=== PATIENT | male | born 1980 | race Caucasian/White ===

== ENCOUNTER → 2018-03-06 14:43 | Outpatient (CLI) | payer MEDICAID, SELFPAY ==
--- NOTE | 2018-03-06 15:06 | CT_ITS ---
CT abdomen pelvis w con CLINICAL INDICATION: Bloody stools with diarrhea and constipation., Rectal bleeding ITS.REASON: RECAL BLEED, BOWEL CHANGE, DIARRHEA ORDERING PHYSICIAN: Lilia Berry PATIENT AGE: 38 years COMPARISON: 05/12/2016 TECHNIQUE: Axial images obtained with sagittal and coronal reformats. All CT scans at the facility use one or more dose reduction, viz: automated exposure control, ma/kV adjustment per patient size (including targeted exams where dose is matched to indication, i.e. head), or iterative reconstruction technique. PROCEDURE: Oral Contrast: Redicat IV Contrast: 75 mL's of Isovue 370. FINDINGS: There is a 6 mm noncalcified nodule in the right middle lobe not significantly changed. The liver, gallbladder, spleen, adrenal glands, pancreas, and kidneys have an unremarkable appearance. No intestinal obstruction or free air. There are few scattered small lymph nodes in the mesentery is which is nonspecific. The appendix has an unremarkable appearance. There is diverticulosis of the descending and sigmoid colon. No evidence of diverticulitis. No pelvic mass or abnormal fluid collection or focal inflammatory change within the pelvis. No acute bony anomalies. There are degenerative changes of the lumbar spine. A sclerotic lesion is present in the left supra-acetabular region consistent with a bone island unchanged. IMPRESSION: 1. No acute findings. 2. Diverticulosis coli. No evidence of diverticulitis
== END ==
PROVIDERS: PCP Nurse Practitioner Acute Care; Visit Provider Nurse Practitioner Acute Care
DX: K62.5 Hemorrhage of anus and rectum (principal); R19.4 Change in bowel habit; R19.7 Diarrhea, unspecified
CPT/HCPCS: 74177; Q9967

== ENCOUNTER → 2018-03-07 11:54 | Outpatient (CLI) | payer MEDICAID, SELFPAY ==
[2018-03-07 11:57] LABS: Adenovirus F 40/41, stool Not Detected (NotDetected); Astrovirus Not Detected (NotDetected); Campylobacter Not Detected (NotDetected); Clostridium Difficile A/B, PCR Not Detected (NotDetected); Cryptosporidium Not Detected (NotDetected); Cyclospora Cayetanesis Not Detected (NotDetected); Entamoeba histolytica Not Detected (NotDetected); Enteroaggregative E coli Not Detected (NotDetected); Enteropathogenic E coli Not Detected (NotDetected); Enterotoxigenic E coli Not Detected (NotDetected); Giardia lamblia Not Detected (NotDetected); Norovirus Not Detected (NotDetected); Plesimonas Shigalloides, PCR Not Detected (NotDetected); Rotavirus A Not Detected (NotDetected); Salmonella, PCR Not Detected (NotDetected); Sapovirus Not Detected (NotDetected); Shiga-like toxin E coli Not Detected (NotDetected); Shigella Enterovasive E coli Not Detected (NotDetected); Vibrio Cholerae Not Detected (NotDetected); Vibrio, PCR Not Detected (NotDetected); Yersinia Entercolitica, PCR Not Detected (NotDetected)
== END ==
LOC: LAB 11:55 → LAB.DROPOF 11:56
PROVIDERS: Visit Provider Nurse Practitioner Acute Care
DX: K62.5 Hemorrhage of anus and rectum (principal)
CPT/HCPCS: 87507

== ENCOUNTER → 2018-07-27 15:57 | Outpatient (CLI) | payer MEDICAID, SELFPAY ==
--- NOTE | 2018-07-27 16:03 | XR_ITS ---
XR ankle LT min 3V HISTORY: Posttraumatic pain ITS.REASON: LT ANKLE INJURY ORDERING PHYSICIAN: Leonie Etienne PATIENT AGE: 38 years Comparison: None FINDINGS: There is a faint density at the tip of the medial malleolus which could represent a small avulsion injury. There is soft tissue swelling medially and laterally. No other significant anomalies are evident. IMPRESSION: Faint calcification at the tip of the medial malleolus which may be due to a nondisplaced avulsion fracture
== END ==
PROVIDERS: PCP Family Medicine; Visit Provider Family Medicine
DX: S99.912A Unspecified injury of left ankle, initial encounter (principal)
CPT/HCPCS: 73610

== ENCOUNTER → 2021-09-07 13:40 | Outpatient (CLI) | payer MEDICAID, SELFPAY ==
--- NOTE | 2021-09-07 13:49 | CA_ITS ---
APPROVED REPORT EXAM: Comprehensive 2D, Doppler, and color-flow Echocardiogram Radiation Oncology Manager: Em Gibbons CRT Ht: 5 ft 7 in Wt: 212lbs BSA: 2.07 BP: 131/75 mmHg Indications: Chest Pain, CAD, Hyperlipidemia, Hypertension/HDD 2D Dimensions LVOT 2.16 cm (M/F) 1.5-2.5 LA Volume 27.90 mL LA Volume Index 13.50 mL/m2 (M/F) 16-34 M-Mode Dimensions RVDd 2.18 cm (0.9-2.6) LA Diam 2.44 cm (1.9-4.0) LVDd 5.17 cm (3.5-5.7) Ao Diam 4.25 cm (2.0-3.7) LVDs 3.21 cm (3.5-5.7) IVSd 1.43 cm (0.6-1.1) PWd 0.86 cm (0.6-1.1) EF (Teich) 67.70% FS 37.90% EDV (Teich) 127.80 mL TAPSE 2.20 (<1.7) ESV (Teich) 41.30 mL LV Diastology E Decel Time 150.00 (160-240 msec) E/A Ratio 0.92 MED E' 8.90 (< 7 cm/sec) MED A' 10.30 cm/s E'/MED E' Ratio 5.67 (>14) LAT E' 9.20 (<10 cm/sec) LAT A' 11.10 cm/s E/LAT E' Ratio 5.49 (>14) Aortic Valve AI PHT 463.00 ms AO Peak GR. 5.10 mmHg Mitral Valve MV E Max Tk. 50.00 (40-130 cm/s) MV A Velocity 55.00 (40-130 cm/s) E/A Ratio 0.92 MV Decel. Time 150.00 (160-240 ms) MV PHT 44.00 ms Tricuspid Valve TR P. Velocity 202.00 cm/s RAP Estimate 10.00 mmHg RVSP 26.40 mmHg Left Ventricle Technically difficult study because of the patient factors and poor acoustic windows. Left atrium is normal size left ventricle is normal size estimated ejection fraction 55% with no regional wall motion abnormality, diastolic parameters are within normal range. Right Ventricle Right atrium and right ventricle are normal size and contractility. Aortic Valve Aortic valve is minimally thickened and fibrosed there is no aortic stenosis, there is trace aortic insufficiency. Mitral Valve Mitral valve is grossly normal, there is trace mitral regurgitation. Tricuspid Valve Tricuspid valve is grossly normal, there is trace tricuspid regurgitation, tricuspid regurgitation jet velocity is inadequate for calculation of the right ventricular systolic pressure. Pulmonic Valve Mitral valve is poorly visualized. Great Vessels Aortic root is normal size. Inferior vena cava is normal size with normal inspiratory collapse. Pericardium No significant pericardial effusion noted. Conclusion 1. Technically difficult study because of the patient factors and poor acoustic windows. 2. Normal left ventricular size preserved left ventricular systolic function, estimated ejection fraction of 55% with no regional wall motion abnormality, diastolic parameters are within normal range. 3. Trace aortic mitral and tricuspid regurgitation. 4. No significant pericardial effusion. 5. Inferior vena cava is normal size with normal inspiratory collapse. Electronically signed by : Javad Ames MD 09/07/2021 15:03:25
== END ==
PROVIDERS: PCP Family Medicine; Visit Provider Nurse Practitioner
DX: I10 Essential (primary) hypertension (principal); E78.5 Hyperlipidemia, unspecified; Z82.49 Family history of ischemic heart disease and other diseases of the circulatory system
CPT/HCPCS: 93306

== ENCOUNTER → 2021-09-14 06:27 | Outpatient (CLI) | payer MEDICAID, SELFPAY ==
--- NOTE | 2021-09-14 | CA_ITS ---
APPROVED REPORT Exam: Pharmacologic Technologist: Gladis Arellano, Ht: 5 ft 7 in Wt: 212 lbs BSA: 2.07 m2 HR: 86 bpm BP: 143/93 mmHg Medical History Medical History: HTN, Hyperlipidemia Medications: Metoprolol,,,,, AtorvaASTATIN,,,,, RIspendone,,,,, CetIRIizine,,,,, Atomoxetine,,,,, SeNnosides docusate,,,,, Cardiac Risk Factors: HTN, Hyperlipidemia, FHX of CAD Stress Test Details Test: LEXISCAN HR Resting HR: 89 bpm Max Heart Rate (APMHR): 180.652196 bpm Max HR Achieved: 133 bpm Target HR (85% APMHR): 153.260729 bpm % of APMHR: 73.89 Recovery HR: 124 bpm BP Resting BP: 143/93 mmHg Max BP: 158/93 mmHg Recovery BP: 149.0/92.0 mmHg ECG Clinical Exercise duration: 04:00 min Highest Stage Achieved: Exercise capacity: 1.0 METs Stress ECG Conclusion During lexiscan pt experinced SOA, no CP noted, no arrthythmias noted, <1.5mm ST changes. Test Summary REST . . . . . . . Sitting REST 03:39 . . 89 . 143/ 93 . . Stage 1 01:00 . . 128 . . . . Stage 2 01:00 . . 132 . . . . Stage 3 01:00 . . 128 . 158/ 93 . . Stage 4 01:00 . . 123 . 152/ 92 . Stop exercise at 04:00 RECOVERY 01:00 . . 119 . 149/ 92 . . RECOVERY 02:00 . . 118 . 150/ 89 . . RECOVERY 02:48 . . 110 . 147/ 94 . . Electronically signed by : Javad Ames MD 09/14/2021 14:00:51
--- NOTE | 2021-09-14 06:32 | NM_ITS ---
APPROVED REPORT Exam: Nuclear Stress Test Indication: CAD Patient Location: Outpatient Stress Tech: Gladis Arellano [place] Tech:Steph Mckeon JERSON RT(R)(N) Ht: 5 ft 7 in Wt: 209 lbs HR: 89 bpm BP: 143/93 mmHg BSA: 2.06 m2 TID: 0.92 BMI: 32.7 History: CAD Procedure: Patient received a 0.4 mg of intravenous Lexiscan, resting heart rate 89 bpm, resting blood pressure 143/93 mmHg, with Lexiscan maximum heart rate achived was 133 bpm which is Less than 85 % of the maximum predicted heart rate and blood pressure was 158/93 mmHg. With Lexiscan, patient denied any complaint of chest pain. Patient was unable to lay on his belly for prone images. Electrocardiogram Resting electrocardiogram showed sinus rhythm, with Lexiscan less than 1.[address] segment depression noted from the baseline EKG. The EKG portion of the Lexiscan is nondiagnostic. Cardiac Stress and Resting SPECT Images: Cardiac Stress and Resting SPECT images were obtained using technetium 99m Myoview 29.7 mCi stress and 10.27 mCi at rest. Gated SPECT analysis of segmental wall motion and calculation of the ejection fraction also done. Cardiac stress and rest SPECT images show uniform myocardial activity without segmental perfusion abnormality, computer derived ejection fraction is 54 % with no regional wall motion abnormality, right ventricle is normal size and contractility. Conclusion: 1. The EKG portion of the Lexiscan is nondiagnostic. 2. No scintigraphic evidence of reversible ischemia seen, computer derived ejection fraction is 54% with no regional wall motion abnormality, right ventricle is normal size and contractility. 3. Normal Lexiscan Myoview study. Electronically signed by : Javad Ames MD 09/14/2021 14:03:10
== END ==
PROVIDERS: PCP Family Medicine; Visit Provider Physician Assistant
DX: R06.02 Shortness of breath (principal)
CPT/HCPCS: 78451; 93017; A9502; J2785

== ENCOUNTER 2022-01-12 13:00 | Emergency (ER) | payer MEDICAID, SELFPAY ==
[2022-01-12 13:11] VITALS: BP 136/74; PULSE 85; RESP 20; TEMP 36.8; O2SAT 98; BMI 30.4
--- NOTE | 2022-01-12 13:17 | CT_ITS ---
PROCEDURE INFORMATION: Exam: CT Abdomen And Pelvis Without Contrast Exam date and time: 01/12/2022 1:51 PM Age: 41 years old Clinical indication: Other: Hematuria; Additional info: Hematuuria, stone protocol TECHNIQUE: Imaging protocol: Computed tomography of the abdomen and pelvis without contrast. Radiation optimization: All CT scans at this facility use at least one of these dose optimization techniques: automated exposure control; mA and/or kV adjustment per patient size (includes targeted exams where dose is matched to clinical indication); or iterative reconstruction. COMPARISON: ABDPELW CT abdomen pelvis w con 03/06/2018 5:03 PM FINDINGS: Diaphragm: Small hiatal hernia. Liver: Hepatic steatosis. Gallbladder and bile ducts: Gallbladder contracted. Pancreas: Normal. No ductal dilation. Spleen: Normal. No splenomegaly. Adrenal glands: Normal. No mass. Kidneys and ureters: Normal. No hydronephrosis. Stomach and bowel: Colonic diverticulosis. No evidence of diverticulitis. Appendix: No evidence of appendicitis. Intraperitoneal space: Unremarkable. No free air. No significant fluid collection. Vasculature: Unremarkable. No abdominal aortic aneurysm. Lymph nodes: Unremarkable. No enlarged lymph nodes. Urinary bladder: Unremarkable as visualized. Reproductive: Unremarkable as visualized. Bones/joints: Unremarkable. No acute fracture. Soft tissues: Small bilateral fat filled inguinal hernias. IMPRESSION: No evidence of acute abnormality.
[2022-01-12 13:37] LABS: Microscopic, Urine URINE MICROSCOPIC (MICROSCOPIC)
[2022-01-12 13:40] LABS: Appearance,Urine CLEAR (Clear); Bilirubin,Urine Negative (Negative); Blood, Urine 3+ (Negative); Color,Urine DK YELLOW (Yellow); Glucose,Urine (UA) Negative (Negative); Ketones,Urine Negative (Negative); Leukocyte Esterase,Urine Negative (Negative); Nitrate,Urine POSITIVE (Negative); PH,Urine 5.5 (5.0-8.5); Protein,Urine Negative (Negative); Specific Gravity, Urine <= 1.005 (1.005-1.030)
[2022-01-12 13:43] VITALS: BP 137/83; PULSE 83; RESP 20; O2SAT 97
--- NOTE | 2022-01-12 13:49 | PC.NURSE ---
pt to rad
[2022-01-12 13:50] LABS: Bacteria,Urine Trace /lpf; Squamous Epithelial Cell,Urine Occasional #/hpf (0-5); WBC,Urine Occasional #/hpf (0-3)
[2022-01-12 13:59] LABS: Alanine Aminotransferase 57 U/L (12-78); Albumin Level 4.8 g/dl (3.5-5.0); Albumin/Globulin Ratio 1.5 (1.1-1.8); Alkaline Phosphatase 145 U/L (38-126); Anion Gap 15.3 mEq/L (5-15); Aspartate Amino Transferase 44 U/L (17-59); Bilirubin,Total 1.2 mg/dl (0.2-1.3); Blood Urea Nitrogen 14 mg/dl (9-20); Carbon Dioxide 29 mmol/L (22.0-30.0); Chloride 100 mmol/L (98-107); Creatinine Clearance Estimated 162 mL/min (50-200); Estimated Glomerular Filt Rate 107 ml/min (>60); GFR (African American) 130 ML/MIN (>60); Globulin 3.1 g/dL (1.3-3.2); Glucose 101 mg/dl (74-100); Potassium 4.3 mmoL/L (3.5-5.1); Sodium 140 mmol/L (136-145); Total Protein,Serum 7.9 g/dl (6.3-8.2)
[2022-01-12 14:00] VITALS: BP 137/82; PULSE 78; O2SAT 96
[2022-01-12 14:11] LABS: Basophils # 0.1 K/mm3 (0-0.2); Basophils % 1.4 % (0.1-2.0); Eosinophils # 0.3 K/mm3 (0.0-0.4); Eosinophils % 4.2 % (0.1-12.0); Hematocrit 49.4 % (42.0-52.0); Hemoglobin 16.7 g/dL (14.1-18.0); Lymphocytes # 2.2 K/mm3 (0.7-4.5); Lymphocytes % 34.5 % (10-50); Mean Corpuscular HGB Conc 33.7 g/dL (31.8-35.4); Mean Corpuscular Hemoglobin 30.5 pg (27.0-31.2); Mean Corpuscular Volume 90.6 fl (80-94); Mean Platelet Volume 8.2 fl (7.4-10.4); Monocytes # 0.6 K/mm3 (0.1-1.0); Monocytes % 9.1 % (1.7-9.3); Neutrophils # 3.3 K/mm3 (1.8-7.8); Neutrophils % 50.9 % (37.0-80.0); Platelet Count 320 K/mm3 (142-424); Red Blood Count 5.45 M/mm3 (4.60-6.20); Red Cell Distribution Width 12.8 % (11.5-17.5); White Blood Count 6.4 K/mm3 (4.8-10.8)
[2022-01-12 14:30] VITALS: BP 138/85; PULSE 79; O2SAT 95
--- NOTE | 2022-01-12 14:40 | PC.NURSE ---
rounded on pt, he is resting mother states they do not need anything at this time.
--- NOTE | 2022-01-12 15:04 | [facility].EDGENADL ---
Discharge Plan Disposition Patient Disposition: Home, Self-Care Condition: Good Prescriptions Prescriptions: New nitrofurantoin macrocrystal 100 mg capsule 100 mg PO BID 7 Days Qty: 14 0RF Rx Instructions: must administer with a meal/food No Action atorvastatin 40 mg tablet 40 mg PO DAILY Label Comments: Take 1 tablet every day by oral route. cetirizine 10 mg tablet 10 mg PO DAILY PRN Label Comments: TAKE 1 TABLET DAILY NEEDED. metoprolol succinate 50 mg tablet extended release 24 hr 75 mg PO DAILY risperidone 0.5 mg tablet 0.5 mg PO DAILY atomoxetine 100 mg capsule 100 mg PO DAILY Rx Instructions: mon, wed, fri sennosides-docusate sodium 8.6-50 mg tablet 1 tab PO DAILY PRN (Reason: bowels) Referrals Follow up/Referrals: Leonie Etienne [Primary Care Provider] - See instructions Activity Restrictions/Add. Instructions Additional Instructions/Restrictions: At this time was felt you are safe to be discharged home. If new or worsening symptoms please do not hesitate to return the emergency department. Please take your medications as prescribed. Please follow-up with your family doctor in the coming week to assess for resolution. Clinical Impressions Clinical Impression: Acute hemorrhagic cystitis, Urinary tract infection Instructions Patient Instructions: DI for Urinary Tract Infection (UTI) Discharge ED Provider: Satnam Bass General Adult HPI General Chief complaint: Urogenital-Male Stated complaint: Bleeding when urination Time Seen by Provider: 01/12/22 13:20 Mode of Arrival: Ambulatory Source of Information: Patient Limitations: No Limitations Description of Symptoms (Recalled from ER Triage Doc. by RN): pt to ed accompanied by mother (POA) who states burning with urination and bright red bloody urine that started this morning. pt denies any pain, n/v. History of Present Illness HPI narrative: Patient is a 41-year-old male with past medical history of mental delay accompanied by his power of health care attorney mother at bedside who presents emergency department for evaluation of dysuria and hematuria. Onset was acute, occurring this morning, significant dysuria upon voiding with multiple voids of david blood. Patient denies abdominal pain, chest pain, vomiting. No other acute complaints at this time. Related Data Home Medications Medication Instructions Recorded Confirmed atomoxetine 100 mg capsule 100 mg PO DAILY add 09/05/21 09/21/21 atorvastatin 40 mg tablet 40 mg PO DAILY 09/05/21 09/21/21 cetirizine 10 mg tablet 10 mg PO DAILY PRN 09/05/21 09/21/21 metoprolol succinate 50 mg 75 mg PO DAILY blood pressure 09/05/21 09/21/21 tablet,extended release 24 hr risperidone 0.5 mg tablet 0.5 mg PO DAILY add 09/05/21 09/21/21 sennosides 8.6 mg-docusate sodium 1 tab PO DAILY PRN bowels 09/05/21 09/21/21 50 mg tablet Previous Rx's Medication Instructions Recorded nitrofurantoin macrocrystal 100 mg 100 mg PO BID 7 days #14 caps 01/12/22 capsule Allergies Allergy/AdvReac Type Severity Reaction Status Date / Time sulfamethoxazole Allergy Unknown Verified 09/21/21 13:58 [From BACTRIM] trimethoprim [From BACTRIM] Allergy Unknown Verified 09/21/21 13:58 PFSH PFSH Social History Smoking Status: Never smoker alcohol intake: never current occupational status: other Travel in the last 8 weeks: Inside the [place] caffeine: No ROS Obtained: Yes Systems reviewed as appropriate & no additional complaints except as documented Physical Exam General General appearance: alert and in no apparent distress Head Head exam: atraumatic and normocephalic Eye Eye exam: Present PERRL and EOMI ENT ENT exam: Present mucous membranes moist Neck Neck exam: Present normal inspection Chest Chest inspection: Present normal inspection and symmetric chest wall rise Respiratory Respiratory exam: Present nor
[2022-01-12 17:09] VITALS: BP 132/80; PULSE 78; RESP 20; TEMP 36.8; O2SAT 96
== END 2022-01-12 15:37 | disposition home or self-care (01) ==
PROVIDERS: Emergency Provider Emergency Medicine; PCP Family Medicine
DX: N30.01 Acute cystitis with hematuria
CPT/HCPCS: 74176; 80053; 81001; 85025; 96374; 99284

== ENCOUNTER 2023-03-10 10:18 | Outpatient (POV) | payer MEDICAID, SELFPAY | END 2023-03-10 23:59 | disposition home or self-care (01) | LOC: SC 10:19 | PROVIDERS: Visit Provider Specialist/Technologist | DX: Z00.00 Encounter for general adult medical examination without abnormal findings (principal) ==